=== PATIENT | male | born 1970 | race Caucasian/White ===

== ENCOUNTER 2021-03-31 09:20 | Emergency (ER) | payer OTHER ==
[~2021-03-31] VITALS: Ht 172.7 cm; Wt 104.3 kg
== END 2021-03-31 11:03 | disposition home or self-care (01) ==
LOC: ER 09:20
DX: S62.604A Fracture of unspecified phalanx of right ring finger, initial encounter for closed fracture (principal); V00.141A Fall from scooter (nonmotorized), initial encounter; Y92.89 Other specified places as the place of occurrence of the external cause